=== PATIENT | female | born 1975 | race Two or more races ===

== ENCOUNTER 2018-03-19 21:03 | Inpatient (IN) | payer MEDICAID ==
[~2018-03-19] VITALS: Ht 162.6 cm; Wt 65.3 kg
[2018-03-19 21:24] LABS: BASOPHILS % (AUTO) 0.5 % (0.0-2.0); EOSINOPHILS % (AUTO) 1.5 % (1.0-6.0); HEMATOCRIT 38.7 % (36-46); HEMOGLOBIN 12.6 g/dL (12.0-16.0); LYMPHOCYTES # (AUTO) 1.6 K/uL (1.0-4.8); LYMPHOCYTES % (AUTO) 21.2 % (22.0-44.0); MEAN CORPUSCULAR HEMOGLOBIN 26.9 pg (26.0-34.0); MEAN CORPUSCULAR HGB CONC 32.4 G/dL (31.0-37.0); MEAN CORPUSCULAR VOLUME 83 fL (80-100); MONOCYTES # (AUTO) 0.5 K/uL (0.1-1.0); MONOCYTES % (AUTO) 6.2 % (2.0-9.0); NEUTROPHILS # (AUTO) 5.2 K/uL (1.8-7.7); NEUTROPHILS % (AUTO) 70.6 % (40.0-70.0); PLATELET COUNT (AUTO) 398 K/uL (150-450); RED BLOOD CELL COUNT(AUTO) 4.68 MIL/uL (4.00-5.20); RED CELL DISTRIBUTION WIDTH 17.3 % (11.5-14.5)
[2018-03-19 21:32] LABS: ANION GAP 10 mmol/L (8-16); CARBON DIOXIDE 27 mmol/L (22-29); CHLORIDE 103 mmol/L (98-107); CREATININE 0.71 mg/dL (0.60-1.30); GLOMERULAR FILTR. RATE CALC > 60 mL/min (>60); GLUCOSE,RANDOM 106 mg/dL (70-110); SODIUM SERUM 140 mmol/L (136-145); UREA NITROGEN, BLOOD 11 mg/dL (7-18)
[2018-03-19 21:38] LABS: ALANINE AMINOTRANSFERASE 52 U/L (12-78); ALKALINE PHOSPHATASE 85 U/L (46-116); ASPARTATE AMINOTRANSFERASE 29 U/L (15-37); BILIRUBIN,TOTAL 0.3 mg/dL (0.1-1.0)
[2018-03-19 21:50] LABS: AMPHET/METH SCREEN,URINE NEGATIVE (NEGATIVE); BARBITURATE SCREEN, URINE NEGATIVE (NEGATIVE); BENZODIAZEPINES SCREEN,URINE NEGATIVE (NEGATIVE); CANNABINOID SCREEN,URINE NEGATIVE (NEGATIVE); COCAINE SCREEN,URINE NEGATIVE (NEGATIVE); METHADONE SCREEN, URINE NEGATIVE (NEGATIVE); OPIATE SCREEN,URINE NEGATIVE (NEGATIVE)
[2018-03-19 21:52] LABS: PHENCYCLIDINE SCREEN,URINE NEGATIVE (NEGATIVE)
[2018-03-20] MEDS ORDERED: LORazepam 2 MG/ML VIAL IM ONE (03:15)
[2018-03-20] MEDS ORDERED: HALOPERIDOL LACTATE 5 MG/ML VIAL IM ONE (03:15)
[2018-03-20] MEDS ORDERED: ZOLPIDEM TARTRATE 10 MG TABLET PO PRN (03:15)
[2018-03-20] MEDS ORDERED: DiphenhydrAMINE HCL 50 MG/ML VIAL IM ONE (03:15)
[2018-03-20] MEDS ORDERED: LORazepam 2 MG TABLET PO PRN (03:15)
[2018-03-20] MEDS ORDERED: HALOPERIDOL 5 MG TABLET PO PRN (03:15)
[2018-03-20 03:50] VITALS: BP 125/84
[2018-03-20] MEDS ORDERED: MAG HYDROX/AL HYDROX/SIMETH ES 30 ML SUSPENSION UDCUP PO PRN (05:45)
[2018-03-20] MEDS ORDERED: DOCUSATE SODIUM 100 MG CAPSULE PO PRN (05:45)
[2018-03-20] MEDS ORDERED: MAGNESIUM HYDROXIDE SUSPENSION 30 ML UDCUP PO PRN (05:45)
[2018-03-20] MEDS ORDERED: IBUPROFEN 400 MG TABLET PO PRN (05:45)
[2018-03-20] MEDS ORDERED: NICOTINE 14 MG/24 HOUR PATCH TD PRN (05:45)
[2018-03-20] MEDS ORDERED: GuaiFENesin/D-METHORPHAN [SUGAR-FREE] 200-20MG/10 ML SYRUP UDCUP PO PRN (05:45)
[2018-03-20] MEDS ORDERED: CloNIDine HCL 0.1 MG TABLET PO PRN (05:45)
[2018-03-20] MEDS ORDERED: ONDANSETRON HCL 4 MG TABLET PO PRN (05:45)
[2018-03-20] MEDS ORDERED: ALBUTEROL SULFATE HFA 90 MCG/PUFF 8 GM INHALER IH PRN (05:45)
[2018-03-20] MEDS ORDERED: LOPERAMIDE HCL 2 MG CAPSULE PO PRN (05:45)
[2018-03-20] MEDS ORDERED: ACETAMINOPHEN 325 MG TABLET PO PRN (05:45)
[2018-03-20 08:08] VITALS: BP 118/75
[2018-03-20] MEDS: RisperiDONE 2 MG TABLET PO SCH ×2 (09:07→17:07)
[2018-03-20 17:47] VITALS: BP 133/81
[2018-03-21 06:44] VITALS: BP 116/67
[2018-03-21 08:22] VITALS: BP 155/83
[2018-03-21 08:27] LABS: THYROID STIMULATING HORMONE 3.28 uIU/mL (0.36-3.74)
[2018-03-21] MEDS: RisperiDONE 2 MG TABLET PO SCH ×2 (08:39→17:00)
[2018-03-21 16:05] VITALS: BP 139/86
[2018-03-22] MEDS: RisperiDONE 2 MG TABLET PO SCH ×2 (08:35→17:30)
[2018-03-22 08:43] VITALS: BP 134/93
[2018-03-22 16:14] VITALS: BP 120/90
[2018-03-23 06:49] VITALS: BP 115/68
[2018-03-23 08:11] VITALS: BP 120/94
[2018-03-23] MEDS: RisperiDONE 2 MG TABLET PO SCH ×2 (08:53→16:45)
[2018-03-23 16:00] VITALS: BP 144/86
[2018-03-24 06:50] VITALS: BP 126/82
[2018-03-24 08:15] VITALS: BP 123/65
[2018-03-24] MEDS: RisperiDONE 2 MG TABLET PO SCH ×2 (08:52→16:55)
[2018-03-24 16:21] VITALS: BP 149/88
[2018-03-24 20:38] VITALS: BP 132/78
[2018-03-25 07:00] VITALS: BP 128/72
[2018-03-25] MEDS: RisperiDONE 2 MG TABLET PO SCH ×2 (08:18→17:00)
[2018-03-25 16:16] VITALS: BP 134/84
[2018-03-26 05:32] VITALS: BP 125/84
[2018-03-26 08:16] VITALS: BP 142/88
[2018-03-26] MEDS: RisperiDONE 2 MG TABLET PO SCH ×3 (08:44→17:00)
[2018-03-26 16:25] VITALS: BP 140/84
[2018-03-27 06:22] VITALS: BP 140/88
[2018-03-27 08:03] VITALS: BP 137/85
[2018-03-27] MEDS: RisperiDONE 2 MG TABLET PO SCH ×2 (09:00→17:00)
[2018-03-27 16:04] VITALS: BP 143/89
[2018-03-28 06:16] VITALS: BP 135/88
[2018-03-28] MEDS: RisperiDONE 2 MG TABLET PO SCH (09:00)
[2018-03-28 09:04] VITALS: BP 124/79
[2018-03-28] MEDS ORDERED: RISP2 PO (11:30)
== END 2018-03-28 12:22 | disposition home or self-care (01) | DRG 885 ==
LOC: EMS 21:05 → B3A 03-20 01:30 → B2S 03-25 13:00
PROVIDERS: ADMIT Psychiatry & Neurology Psychiatry; ATTEND Psychiatry & Neurology Psychiatry
DX: F20.0 Paranoid schizophrenia (principal); F41.9 Anxiety disorder, unspecified; G47.00 Insomnia, unspecified; R45.87 Impulsiveness; Z28.21 Immunization not carried out because of patient refusal; Z91.14 Patient's other noncompliance with medication regimen
CPT/HCPCS: 84443; 90686; 96372; 99285; G0480; J1200; J1630; J2060